=== PATIENT | male | born 1970 | race African-American/Black ===

== ENCOUNTER 2016-11-23 11:02 | Inpatient (IN) | payer OTHER ==
[2016-11-23 12:23] VITALS: BMI 25.2
--- NOTE | 2016-11-23 15:45 | HP ---
COWS - Scale Resting Pulse: 0= [place] 80 or Below Sweatin=Flushed/Facial Moisture Restless Observation: 3= Extraneous Movement Pupil Size: 1= Pupils >than Normal Bone or Joint Aches: 2= Severe Diffuse Aches Runny Nose/ Eye Tearin= Runny Nose/Eyes GI Upset > 30mins: 3= Vomiting/Diarrhea Tremor Observation: 2= Slight Tremor Visible Yawning Observation: 2= >3x During Session Anxiety or Irritability: 2=Irritable/Anxious Goose Flesh Skin: 0=Smooth Skin COWS Score: 19 Admission ROS BHS - HPI Chief Complaint: i need help help to stop using heroin Allergies/Adverse Reactions: Allergies Allergy/AdvReac Type Severity Reaction Status Date / Time No Known Allergies Allergy Verified 11/23/16 13:59 History of Present Illness: this 46 years old male with heroin dependence,withdrawal symptom,last 07/18 in [place] nicotine dependence insomnia longest sobriety 3 years Exam Limitations: No Limitations - Ebola screening Have you been sick,other than usual withdrawal symptoms: No - Review of Systems Constitutional: Chills, Diaphoresis, Loss of Appetite, Malaise, Night Sweats, Changes in sleep, Weakness, Unintentional Wgt. Loss EENT: reports: Tearing, Nose Congestion Respiratory: reports: No Symptoms reported Cardiac: reports: No Symptoms Reported GI: reports: Diarrhea, Nausea, Vomiting, Abdominal cramping : reports: No Symptoms Reported Musculoskeletal: reports: Back Pain, Joint Pain, Joint Stiffness Integumentary: reports: Dryness Neuro: reports: Headache, Tremors Endocrine: reports: No Symptoms Reported Hematology: reports: No Symptoms Reported Psychiatric: reports: No Sypmtoms Reported Patient History - Patient Medical History Hx Anemia: No Hx Asthma: No Hx Chronic Obstructive Pulmonary Disease (COPD): No Hx Cancer: No Hx Cardiac Disorders: No Hx Congestive Heart Failure: No Hx Hypertension: No Hx Hypercholesterolemia: No Hx Pacemaker: No HX Cerebrovascular Accident: No Hx Seizures: No Hx Dementia: No Hx Diabetes: No Hx Gastrointestinal Disorders: No Hx Liver Disease: No Hx Genitourinary Disorders: No Hx Sexually Transmitted Disorders: No Hx Renal Disease (ESRD): No Hx Thyroid Disease: No Hx Human Immunodeficiency Virus (HIV): No (last 2015 negative) Hx Hepatitis C: No Hx Depression: No Hx Suicide Attempt: No Hx Bipolar Disorder: No Hx Schizophrenia: No Other Medical History: no suicidal,no homicidal - Patient Surgical History Past Surgical History: Yes Hx Appendectomy: Yes (age 11 years) Other Surgical History: surgery for torsion of teses at age of 14 - PPD History Previous Implant?: Yes Documented Results: Negative w/o proof Implanted On Prior [facility] Admission?: No PPD to be Administered?: Yes - Smoking Cessation Smoking history: Current every day smoker Have you smoked in the past 12 months: Yes Aproximately how many cigarettes per day: 10 Hx Chewing Tobacco Use: No Initiated information on smoking cessation: Yes 'Breaking Loose' booklet given: 11/23/16 - Substance & Tx. History Hx Alcohol Use: No Hx Substance Use: Yes Substance Use Type: Heroin Hx Substance Use Treatment: Yes ([place] 06/17) - Substances Abused Heroin Route: Inhalation Frequency: Daily Amount used: 10 BAGS Age of first use: 18 Date of Last Use: 11/22/16 Family Disease History - Family Disease History Family History: Denies Admission Physical Exam [facility] - Vital Signs Vital Signs: Vital Signs - 24 hr 11/23/16 12:22 Temperature 97.8 F Pulse Rate 80 Respiratory 18 Rate Blood Pressure 131/75 - Physical General Appearance: Yes: Moderate Distress, Tremorous, Sweating, Anxious HEENTM: Yes: Hearing grossly Normal, Pharynx Normal, Nasal Congestion Respiratory: Yes: Lungs Clear Neck: Yes: Within Normal Limits, Supple, Trachea in good position Breast: Yes: Within Normal Limits Cardiology: Yes: Within Normal Limits, Regular Rhythm, Regular Rate, S1, S2 Abdominal: Yes: Within Normal Limits, Normal Bowel Sounds, Non Tender, Soft, Surgical Scar Genitourinary: Yes: Within Normal Limits Back: Yes: Normal Inspection, Muscle Spasm Musculoskeletal: Yes: full range of Motion, Back pain, Joint Stiffness, Muscle Pain Extremities: Yes: Normal Capillary Refill, Normal Inspection, Normal Range of Motion, Tremors Neurological: Yes: 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 loom control II-XII NML intact, Fully Oriented, Alert, Motor Strength 5/5 Integumentary: Yes: Dry Lymphatic: Yes: Within Normal Limits - Diagnostic (1) Opioid dependence with withdrawal Current Visit: Yes Status: Acute (2) Nicotine dependence Current Visit: Yes Status: Acute (3) Weight loss Current Visit: Yes Status: Acute (4) Insomnia Current Visit: Yes Status: Acute Cleared for Admission [facility] - Detox or Rehab [facility] Level of Care: Medically Managed Detox Regimen/Protocol: Methadone [facility] Breath Alcohol Content Breath Alcohol Content: 0 Urine Drug Screen - Results Drug Screen Negative: No Urine Drug Screen Results: OPI-Opiates, OXY-Oxycodone
[2016-11-23] MEDS ORDERED: hydrOXYzine PAMOATE 25 MG CAPSULE (FP) PO PRN (15:56)
[2016-11-23] MEDS ORDERED: IBUPROFEN 400 MG TABLET (FP) PO PRN (15:56)
[2016-11-23] MEDS ORDERED: guaiFENesin/D-METHORPHAN HB 10 ML UNIT-DOSE CUPS PO PRN (15:56)
[2016-11-23] MEDS ORDERED: MAG HYDROX/AL HYDROX/SIMETH 30 ML UNIT-DOSE CUP PO PRN (15:56)
[2016-11-23] MEDS ORDERED: MAGNESIUM HYDROX 2400MG/30ML ORAL SUSPENSION 30 ML CUP PO PRN (15:56)
[2016-11-23] MEDS ORDERED: ACETAMINOPHEN 325 MG TABLET (FP) PO PRN (15:56)
[2016-11-23] MEDS ORDERED: MENTHOL/PHENOL 1 EACH UD MM PRN (15:56)
[2016-11-23] MEDS ORDERED: MAGNESIUM CITRATE 300 ML BOTTLE PO PRN (15:56)
[2016-11-23] MEDS ORDERED: P-EPHED 60MG/TRIPROLIDI 2.5MG TABLET PO PRN (15:56)
[2016-11-23] MEDS ORDERED: NICOTINE POLACRILEX 2 MG GUM BC PRN (15:56)
[2016-11-23] MEDS ORDERED: LOPERAMIDE HCL 2 MG CAPSULE PO PRN (15:56)
[2016-11-23] MEDS ORDERED: METHADONE HCL 10 MG TABLET (FOR DETOX USE ONLY) PO ONE ×2 (16:45→23:00)
[2016-11-23] MEDS: diazePAM 5 MG TABLET PO PRN (17:45)
[2016-11-23 20:03] LABS: URINE APPEARANCE CLEAR; URINE BILIRUBIN NEGATIVE (NEGATIVE); URINE BLOOD NEGATIVE (NEGATIVE); URINE COLOR YELLOW; URINE GLUCOSE (UA) NEGATIVE (NEGATIVE); URINE KETONE NEGATIVE (NEGATIVE); URINE LEUK ESTERASE NEGATIVE (NEGATIVE); URINE NITRITE NEGATIVE (NEGATIVE); URINE PROTEIN NEGATIVE (NEGATIVE); URINE UROBILINOGEN NEGATIVE E.U./dl (0.2-1.0)
[2016-11-23] MEDS: cloNIDine HCL 0.1 MG TABLET PO SCH (23:02)
[2016-11-23] MEDS: THIAMINE HCL 100 MG TABLET (FP) PO SCH (23:02)
[2016-11-23] MEDS: CYCLOBENZAPRINE HCL 10 MG TABLET (FP) PO PRN (23:03)
[2016-11-23] MEDS: diphenhydrAMINE HCL 50 MG CAPSULE PO PRN (23:04)
[2016-11-24] MEDS ORDERED: TRIMETHOBENZAMIDE HCL 200MG/2ML INJ IM PRN ×2 (07:34→10:26)
[2016-11-24] MEDS ORDERED: ONDANSETRON *ODT* 4 MG TABLET SL PRN (09:47)
--- NOTE | 2016-11-24 09:55 | PN ---
BHS COWS - Scale Resting Pulse: 0= [place] 80 or Below Sweatin=Flushed/Facial Moisture Restless Observation: 1= Difficult to Sit Still Pupil Size: 1= Pupils >than Normal Bone or Joint Aches: 2= Severe Diffuse Aches Runny Nose/ Eye Tearin= Runny Nose/Eyes GI Upset > 30mins: 3= Vomiting/Diarrhea (repeated bout of vomiting) Tremor Observation of Outstretched Hands: 2= Slight Tremor Visible Yawning Observation: 1= 1-2x During Session Anxiety or Irritability: 2=Irritable/Anxious Goose Flesh Skin: 3=Piloerection COWS Score: 19 BHS Progress Note (SOAP) Subjective: Nausea,vomiting,sweating,anxiety,restless,interrupted sleep Objective: 11/24/16 09:54 Vital Signs - 8 hr 11/24/16 11/24/16 03:00 06:36 Temperature 98.2 F Pulse Rate 77 Respiratory 18 16 Rate Blood Pressure 117/83 Laboratory Tests 11/23/16 19:45 Urine Color Yellow Urine Appearance Clear Urine pH 5.0 Ur Specific [place] 1.018 Urine Protein Negative Urine Glucose (UA) Negative Urine Ketones Negative Urine Blood Negative Urine Nitrite Negative Urine Bilirubin Negative Urine Urobilinogen Negative Ur Leukocyte Esterase Negative Assessment: 11/24/16 09:54 Withdrawal sx. Plan: Continue detox Methadone 10mg IM
[2016-11-24] MEDS ORDERED: METHADONE HCL 10 MG TABLET (FOR DETOX USE ONLY) PO ONE (10:00)
[2016-11-24 10:39] LABS: MCH 29.3 pg (25.7-33.7); MCHC 33.5 g/dl (32.0-35.9); MEAN CELL VOLUME 87.4 fl (80-96); MEAN PLT VOLUME 8.3 fl (7.5-11.1); PLATELET COUNT 322 K/MM3 (134-434); RDW 13.7 % (11.9-15.9); WHITE BLOOD COUNT 4.9 K/mm3 (4.0-10.0)
[2016-11-24] MEDS ORDERED: METHADONE DETOX 10 MG/1 ML [20ML VIAL] IM ONE (11:00)
[2016-11-24 11:10] LABS: ALBUMIN 3.9 g/dl (3.4-5.0); ALK PHOS 83 U/L (45-117); ANION GAP 9 (8-16); BILIRUBIN,TOTAL 0.4 mg/dL (0.2-1.0); CALCIUM 9.6 mg/dL (8.5-10.1); CO2 25 mmol/L (21-32); GLUCOSE,RANDOM 94 mg/dL (74-106); SGOT/AST 45 U/L (15-37); SGPT/ALT 75 U/L (12-78); TOT PROT 7.7 g/dl (6.4-8.2)
[2016-11-24] MEDS: PRENATAL VITAMINS W/ FOLIC ACID TABLET (FP) PO SCH (11:10)
[2016-11-24] MEDS: cloNIDine HCL 0.1 MG TABLET PO SCH ×2 (11:10→22:50)
--- NOTE | 2016-11-24 13:03 | CONSULT ---
[facility] Psychiatric Consult - Data Date of interview: 11/24/16 Admission source: [facility] Identifying data: Readmission to [facility] for this 46 y/o AA male seeking detox treatment for heroin dependence.Patient is single,a father of one, domiciled,unemployed and supported on food stamps. Substance Abuse History: - Smoking Cessation. Smoking history: Current every day smoker. Have you smoked in the past 12 months: Yes. Aproximately how many cigarettes per day: 10. Hx Chewing Tobacco Use: No. Initiated information on smoking cessation: Yes. 'Breaking Loose' booklet given: 11/23/16. - Substance & Tx. History. Hx Alcohol Use: No. Hx Substance Use: Yes. Substance Use Type : Heroin. Hx Substance Use Treatment: Yes ([place] 06/17). - Substances Abused. Heroin. Route: Inhalation. Frequency: Daily. Amount used: 10 BAGS. Age of first use: 18. Date of Last Use: 11/22/16. Confirmed by patient . Medical History: Patient endorses good general health. Psychiatric History: Patient denies. Physical/Sexual Abuse/Trauma History: Patient denies. Additional Comment: Urine Drug Screen Results: OPI-Opiates, OXY-Oxycodone.Noted. Mental Status Exam - Mental Status Exam Alert and Oriented to: Time, Place, Person Cognitive Function: Good Patient Appearance: Unkempt, Disheveled Mood: Hostile, Withdrawn, Irritable Affect: Mood Congruent Patient Behavior: Fatigued, Uncooperative Speech Pattern: Clear Voice Loudness: Normal Thought Process: Goal Oriented Thought Disorder: Not Present Hallucinations: Denies Suicidal Ideation: Denies Homicidal Ideation: Denies Insight/Judgement: Poor Sleep: Fair Appetite: Good Muscle strength/Tone: Normal Gait/Station: Normal Psychiatric Findings - Problem List ([place] 1, 2,3) (1) Nicotine dependence Current Visit: Yes Status: Acute (2) Opioid dependence with withdrawal Current Visit: Yes Status: Acute (3) Insomnia Current Visit: Yes Status: Acute - Initial Treatment Plan Initial Treatment Plan: Psychoeducation.Detoxification in progress.Insomnia is addressed with benadryl at bedtime.Side effects/benefits discussed.Patient agrees with careplan.Observation.
[2016-11-24] MEDS: CYCLOBENZAPRINE HCL 10 MG TABLET (FP) PO PRN (17:39)
[2016-11-24] MEDS: diazePAM 5 MG TABLET PO PRN ×2 (17:39→22:51)
--- NOTE | 2016-11-24 18:31 | EKG ---
Test Reason : Blood Pressure : / mmHG Vent. Rate : 075 BPM Atrial Rate : 075 BPM P-R Int : 180 ms QRS Dur : 090 ms QT Int : 382 ms P-R-T Axes : 055 052 017 degrees QTc Int : 426 ms NORMAL SINUS RHYTHM NORMAL ECG NO PREVIOUS ECGS AVAILABLE Confirmed by SHERRI BECK MD ([id number]) on 11/24/2016 6:30:29 PM Referred By: Confirmed By:SHERRI BECK MD
[2016-11-24] MEDS: diphenhydrAMINE HCL 50 MG CAPSULE PO PRN (22:50)
[2016-11-24] MEDS: THIAMINE HCL 100 MG TABLET (FP) PO SCH (22:50)
[2016-11-25] MEDS ORDERED: METHADONE HCL 5 MG TABLET (FOR DETOX USE ONLY) PO ONE (10:00)
[2016-11-25] MEDS: PRENATAL VITAMINS W/ FOLIC ACID TABLET (FP) PO SCH (10:34)
[2016-11-25] MEDS: cloNIDine HCL 0.1 MG TABLET PO SCH ×2 (10:34→22:38)
[2016-11-25] MEDS: diazePAM 5 MG TABLET PO PRN ×2 (10:34→22:38)
--- NOTE | 2016-11-25 12:55 | PN ---
BHS COWS - Scale Resting Pulse: 2= [place] 101-120 Sweatin=Flushed/Facial Moisture Restless Observation: 1= Difficult to Sit Still Pupil Size: 0= Normal to Room Light Bone or Joint Aches: 2= Severe Diffuse Aches Runny Nose/ Eye Tearin= Runny Nose/Eyes GI Upset > 30mins: 2= Nausea/Diarrhea Tremor Observation of Outstretched Hands: 2= Slight Tremor Visible Yawning Observation: 1= 1-2x During Session Anxiety or Irritability: 2=Irritable/Anxious Goose Flesh Skin: 0=Smooth Skin COWS Score: 16 BHS Progress Note (SOAP) Subjective: Anxiety,tremors,sweating,interrupted sleep,restless Objective: 11/25/16 12:54 Vital Signs - 8 hr 11/25/16 11/25/16 06:34 09:44 Temperature 99.7 F H 99.4 F Pulse Rate 110 H 116 H Respiratory 18 18 Rate Blood Pressure 141/104 130/89 Laboratory Tests 11/23/16 11/24/16 11/24/16 19:45 06:20 06:20 WBC 4.9 RBC 4.25 Hgb 12.4 Hct 37.1 MCV 87.4 MCHC 33.5 RDW 13.7 Plt Count 322 MPV 8.3 Sodium 139 Potassium 4.3 Chloride 105 Carbon Dioxide 25 Anion Gap 9 BUN 15 Creatinine 1.0 Creat Clearance w eGFR > 60 Random Glucose 94 Calcium 9.6 Total Bilirubin 0.4 AST 45 H ALT 75 Alkaline Phosphatase 83 Total Protein 7.7 Albumin 3.9 Urine Color Yellow Urine Appearance Clear Urine pH 5.0 Ur Specific [place] 1.018 Urine Protein Negative Urine Glucose (UA) Negative Urine Ketones Negative Urine Blood Negative Urine Nitrite Negative Urine Bilirubin Negative Urine Urobilinogen Negative Ur Leukocyte Esterase Negative RPR Titer 11/24/16 06:20 WBC RBC Hgb Hct MCV MCHC RDW Plt Count MPV Sodium Potassium Chloride Carbon Dioxide Anion Gap BUN Creatinine Creat Clearance w eGFR Random Glucose Calcium Total Bilirubin AST ALT Alkaline Phosphatase Total Protein Albumin Urine Color Urine Appearance Urine pH Ur Specific [place] Urine Protein Urine Glucose (UA) Urine Ketones Urine Blood Urine Nitrite Urine Bilirubin Urine Urobilinogen Ur Leukocyte Esterase RPR Titer Nonreactive labs noted Assessment: 11/25/16 12:54 Withdrawal sx. Plan: Continue detox
[2016-11-25] MEDS: THIAMINE HCL 100 MG TABLET (FP) PO SCH (22:38)
[2016-11-25] MEDS: CYCLOBENZAPRINE HCL 10 MG TABLET (FP) PO PRN (22:38)
[2016-11-26] MEDS ORDERED: METHADONE HCL 10 MG TABLET (FOR DETOX USE ONLY) PO ONE (10:00)
[2016-11-26] MEDS ORDERED: METHADONE HCL 5 MG TABLET (FOR DETOX USE ONLY) PO ONE (10:00)
--- NOTE | 2016-11-26 10:00 | PN ---
BHS Progress Note (SOAP) Subjective: No more vomiting,still c/o sweating & interrupted sleep. Objective: 11/26/16 09:59 Vital Signs - 8 hr 11/26/16 11/26/16 03:30 06:24 Temperature 98.2 F Pulse Rate 95 H Respiratory 18 18 Rate Blood Pressure 109/79 Laboratory Last Values WBC 4.9 K/mm3 (4.0-10.0) 11/24/16 06:20 RBC 4.25 M/mm3 (4.00-5.60) 11/24/16 06:20 Hgb 12.4 GM/dL (11.7-16.9) 11/24/16 06:20 Hct 37.1 % (35.4-49) 11/24/16 06:20 MCV 87.4 fl (80-96) 11/24/16 06:20 MCHC 33.5 g/dl (32.0-35.9) 11/24/16 06:20 RDW 13.7 % (11.9-15.9) 11/24/16 06:20 Plt Count 322 K/MM3 (134-434) 11/24/16 06:20 MPV 8.3 fl (7.5-11.1) 11/24/16 06:20 Sodium 139 mmol/L (136-145) 11/24/16 06:20 Potassium 4.3 mmol/L (3.5-5.1) 11/24/16 06:20 Chloride 105 mmol/L (98-107) 11/24/16 06:20 Carbon Dioxide 25 mmol/L (21-32) 11/24/16 06:20 Anion Gap 9 (8-16) 11/24/16 06:20 BUN 15 mg/dL (7-18) 11/24/16 06:20 Creatinine 1.0 mg/dL (0.7-1.3) 11/24/16 06:20 Creat Clearance w eGFR > 60 (>60) 11/24/16 06:20 Random Glucose 94 mg/dL (74-106) 11/24/16 06:20 Calcium 9.6 mg/dL (8.5-10.1) 11/24/16 06:20 Total Bilirubin 0.4 mg/dL (0.2-1.0) 11/24/16 06:20 AST 45 U/L (15-37) H 11/24/16 06:20 ALT 75 U/L (12-78) 11/24/16 06:20 Alkaline Phosphatase 83 U/L (45-117) 11/24/16 06:20 Total Protein 7.7 g/dl (6.4-8.2) 11/24/16 06:20 Albumin 3.9 g/dl (3.4-5.0) 11/24/16 06:20 Urine Color Yellow 11/23/16 19:45 Urine Appearance Clear 11/23/16 19:45 Urine pH 5.0 (5.0-8.0) 11/23/16 19:45 Ur Specific [place] 1.018 (1.001-1.035) 11/23/16 19:45 Urine Protein Negative (NEGATIVE) 11/23/16 19:45 Urine Glucose (UA) Negative (NEGATIVE) 11/23/16 19:45 Urine Ketones Negative (NEGATIVE) 11/23/16 19:45 Urine Blood Negative (NEGATIVE) 11/23/16 19:45 Urine Nitrite Negative (NEGATIVE) 11/23/16 19:45 Urine Bilirubin Negative (NEGATIVE) 11/23/16 19:45 Urine Urobilinogen Negative E.U./dl (0.2-1.0) 11/23/16 19:45 Ur Leukocyte Esterase Negative (NEGATIVE) 11/23/16 19:45 RPR Titer Nonreactive (NONREACTIVE) 11/24/16 06:20 labs noted Assessment: 11/26/16 10:00 Withdrawal sx. Plan: Continue detox
[2016-11-26] MEDS: PRENATAL VITAMINS W/ FOLIC ACID TABLET (FP) PO SCH (10:34)
[2016-11-26] MEDS: cloNIDine HCL 0.1 MG TABLET PO SCH ×2 (10:34→22:45)
[2016-11-26] MEDS: THIAMINE HCL 100 MG TABLET (FP) PO SCH (22:45)
[2016-11-26] MEDS: diphenhydrAMINE HCL 50 MG CAPSULE PO PRN (22:45)
[2016-11-26] MEDS: CYCLOBENZAPRINE HCL 10 MG TABLET (FP) PO PRN (22:45)
[2016-11-27] MEDS: CYCLOBENZAPRINE HCL 10 MG TABLET (FP) PO PRN (05:24)
[2016-11-27] MEDS ORDERED: METHADONE HCL 5 MG TABLET (FOR DETOX USE ONLY) PO ONE (06:00)
[2016-11-27 06:15] VITALS: BP 96/72; PULSE 108; TEMP 97.8
--- NOTE | 2016-11-27 09:05 | DS ---
[facility] Detox Discharge Summary Admission Date: 11/23/16 Discharge Date: 11/27/16 - History Present History: Opioid Dependence Additional Comments: DETOX COMPLETED. Pertinent Past History: INSOMNIA - Physical Exam Results Vital Signs: Vital Signs Temperature 97.8 F 11/27/16 06:13 Pulse Rate 108 H 11/27/16 06:13 Respiratory Rate 18 11/27/16 06:13 Blood Pressure 96/72 11/27/16 06:13 O2 Sat by Pulse Oximetry (%) Pertinent Admission Physical Exam Findings: WITHDRAWAL SX Laboratory Last Values WBC 4.9 K/mm3 (4.0-10.0) 11/24/16 06:20 RBC 4.25 M/mm3 (4.00-5.60) 11/24/16 06:20 Hgb 12.4 GM/dL (11.7-16.9) 11/24/16 06:20 Hct 37.1 % (35.4-49) 11/24/16 06:20 MCV 87.4 fl (80-96) 11/24/16 06:20 MCHC 33.5 g/dl (32.0-35.9) 11/24/16 06:20 RDW 13.7 % (11.9-15.9) 11/24/16 06:20 Plt Count 322 K/MM3 (134-434) 11/24/16 06:20 MPV 8.3 fl (7.5-11.1) 11/24/16 06:20 Sodium 139 mmol/L (136-145) 11/24/16 06:20 Potassium 4.3 mmol/L (3.5-5.1) 11/24/16 06:20 Chloride 105 mmol/L (98-107) 11/24/16 06:20 Carbon Dioxide 25 mmol/L (21-32) 11/24/16 06:20 Anion Gap 9 (8-16) 11/24/16 06:20 BUN 15 mg/dL (7-18) 11/24/16 06:20 Creatinine 1.0 mg/dL (0.7-1.3) 11/24/16 06:20 Creat Clearance w eGFR > 60 (>60) 11/24/16 06:20 Random Glucose 94 mg/dL (74-106) 11/24/16 06:20 Calcium 9.6 mg/dL (8.5-10.1) 11/24/16 06:20 Total Bilirubin 0.4 mg/dL (0.2-1.0) 11/24/16 06:20 AST 45 U/L (15-37) H 11/24/16 06:20 ALT 75 U/L (12-78) 11/24/16 06:20 Alkaline Phosphatase 83 U/L (45-117) 11/24/16 06:20 Total Protein 7.7 g/dl (6.4-8.2) 11/24/16 06:20 Albumin 3.9 g/dl (3.4-5.0) 11/24/16 06:20 Urine Color Yellow 11/23/16 19:45 Urine Appearance Clear 11/23/16 19:45 Urine pH 5.0 (5.0-8.0) 11/23/16 19:45 Ur Specific [place] 1.018 (1.001-1.035) 11/23/16 19:45 Urine Protein Negative (NEGATIVE) 11/23/16 19:45 Urine Glucose (UA) Negative (NEGATIVE) 11/23/16 19:45 Urine Ketones Negative (NEGATIVE) 11/23/16 19:45 Urine Blood Negative (NEGATIVE) 11/23/16 19:45 Urine Nitrite Negative (NEGATIVE) 11/23/16 19:45 Urine Bilirubin Negative (NEGATIVE) 11/23/16 19:45 Urine Urobilinogen Negative E.U./dl (0.2-1.0) 11/23/16 19:45 Ur Leukocyte Esterase Negative (NEGATIVE) 11/23/16 19:45 RPR Titer Nonreactive (NONREACTIVE) 11/24/16 06:20 - Treatment Hospital Course: Detox Protocol Followed, Detoxed Safely, Responded well, Discharged Condition Good, Rehab Referral Accepted Patient has Accepted a Rehab Referral to: [facility]; SELF HELP MEETING GROUP: [facility] - Medication Discharge Medications: Ambulatory Orders NK [No Known Home Medication] 11/23/16 - AMA Did Patient Leave Against Medical Advice: No
[2016-11-27] MEDS ORDERED: METHADONE HCL 10 MG TABLET (FOR DETOX USE ONLY) PO ONE (10:00)
[2016-11-28] MEDS ORDERED: METHADONE HCL 5 MG TABLET (FOR DETOX USE ONLY) PO ONE (06:00)
== END 2016-11-27 06:36 | disposition home or self-care (01) | DRG 773 ==
LOC: YASAS 11:02 → Y3N 15:53
PROVIDERS: ADMIT Internal Medicine; ATTEND Internal Medicine
PROC: HZ2ZZZZ Detoxification Services for Substance Abuse Treatment (ICD-10-PCS; principal; 2016-11-27)
DX: F11.23 Opioid dependence with withdrawal (principal); F17.210 Nicotine dependence, cigarettes, uncomplicated; G47.00 Insomnia, unspecified; R63.4 Abnormal weight loss; Z68.25 Body mass index [BMI] 25.0-25.9, adult
CPT/HCPCS: 36415; 80053; 81003; 85027; 86593; 93005; 93010

== ENCOUNTER 2016-12-28 11:07 | Inpatient (IN) | payer OTHER ==
[2016-12-28 12:15] VITALS: BMI 26.1
--- NOTE | 2016-12-28 14:40 | HP ---
COWS - Scale Resting Pulse: 0= [place] 80 or Below Sweatin=Flushed/Facial Moisture Restless Observation: 1= Difficult to Sit Still Pupil Size: 0= Normal to Room Light Bone or Joint Aches: 2= Severe Diffuse Aches Runny Nose/ Eye Tearin= Constantly Teary/Runny GI Upset > 30mins: 2= Nausea/Diarrhea Tremor Observation: 2= Slight Tremor Visible Yawning Observation: 2= >3x During Session Anxiety or Irritability: 2=Irritable/Anxious Goose Flesh Skin: 3=Piloerection COWS Score: 20 Admission ROS S - HPI Chief Complaint: I need help. Allergies/Adverse Reactions: Allergies Allergy/AdvReac Type Severity Reaction Status Date / Time No Known Allergies Allergy Verified 12/28/16 14:26 History of Present Illness: Pt is a 46yr old male with a history of heroin dependence seeking detox for treatment. Exam Limitations: No Limitations - Ebola screening Have you traveled outside of the country in the last 21 days: No Have you had contact with anyone from an Ebola affected area: No Have you been sick,other than usual withdrawal symptoms: No Do you have a fever: No - Review of Systems Constitutional: Chills, Diaphoresis, Loss of Appetite, Night Sweats, Changes in sleep, Unintentional Wgt. Loss EENT: reports: Tearing, Nose Congestion Respiratory: reports: No Symptoms reported Cardiac: reports: No Symptoms Reported GI: reports: Diarrhea, Nausea, Poor Appetite, Poor Fluid Intake, Abdominal cramping : reports: No Symptoms Reported Musculoskeletal: reports: Back Pain, Joint Pain, Muscle Pain, Muscle Weakness Integumentary: reports: Flushing, Sweating Neuro: reports: Headache, Tingling, Tremors Endocrine: reports: Excessive Sweating, Flushing, Intolerance to Cold, Intolerance to Heat Hematology: reports: No Symptoms Reported Psychiatric: reports: Judgement Intact, Mood/Affect Appropiate, Orientated x3, Agitated, Anxious Other Systems: Reviewed and Negative Patient History - Patient Medical History Hx Anemia: No Hx Asthma: No Hx Chronic Obstructive Pulmonary Disease (COPD): No Hx Cancer: No Hx Cardiac Disorders: No Hx Congestive Heart Failure: No Hx Hypertension: No Hx Hypercholesterolemia: No Hx Pacemaker: No HX Cerebrovascular Accident: No Hx Seizures: No Hx Dementia: No Hx Diabetes: No Hx Gastrointestinal Disorders: No Hx Liver Disease: No Hx Genitourinary Disorders: No Hx Sexually Transmitted Disorders: No Hx Renal Disease (ESRD): No Hx Thyroid Disease: No Hx Human Immunodeficiency Virus (HIV): No (last 2016 negative) Hx Hepatitis C: No (negative) Hx Depression: No Hx Suicide Attempt: No Hx Bipolar Disorder: No Hx Schizophrenia: No - Patient Surgical History Past Surgical History: Yes Hx Appendectomy: Yes (age 11 years) Other Surgical History: surgery for torsion of teses at age of 14 - PPD History Previous Implant?: Yes Date: 11/25/16 PPD to be Administered?: No - Reproductive History Patient is a Female of Child Bearing Age (11 -55 yrs old): No - Smoking Cessation Smoking history: Current every day smoker Have you smoked in the past 12 months: Yes Aproximately how many cigarettes per day: 10 Hx Chewing Tobacco Use: No Initiated information on smoking cessation: Yes 'Breaking Loose' booklet given: 12/28/16 - Substance & Tx. History Hx Alcohol Use: No Hx Substance Use: Yes Substance Use Type: Heroin Hx Substance Use Treatment: Yes Family Disease History - Family Disease History Family Disease History: Diabetes: Father Admission Physical Exam S - Vital Signs Vital Signs: Vital Signs - 24 hr 12/28/16 12:14 Temperature 98.1 F Pulse Rate 80 Respiratory 18 Rate Blood Pressure 139/74 - Physical General Appearance: Yes: Appropriately Dressed, Moderate Distress, Tremorous, Irritable, Sweating, Anxious HEENTM: Yes: Normal Voice, Nasal Congestion, Rhinorrhea Respiratory: Yes: Lungs Clear, Normal Breath Sounds, No Respiratory Distress Neck: Yes: No masses,lesions,Nodules Breast: Yes: Within Normal Limits Cardiology: Yes: Regular Rhythm, Regular Rate, S1, S2 Abdominal: Yes: Normal Bowel Sounds Genitourinary: Yes: Within Normal Limits Back: Yes: Normal Inspection Musculoskeletal: Yes: full range of Motion, Back pain Extremities: Yes: Normal Capillary Refill, Normal Inspection, Non-Tender, Tremors Neurological: Yes: Fully Oriented, Alert, Normal Response Integumentary: Yes: Normal Color, Diaphoresis Lymphatic: Yes: Within Normal Limits - Diagnostic (1) Nicotine dependence Current Visit: Yes Status: Chronic Qualifiers: Nicotine product type: cigarettes Substance use status: uncomplicated Qualified Code(s): F17.210 - Nicotine dependence, cigarettes, uncomplicated (2) Opioid dependence with withdrawal Current Visit: Yes Status: Chronic (3) Weight loss Current Visit: Yes Status: Acute Cleared for Admission [facility] - Detox or Rehab [facility] Level of Care: Medically Managed Detox Regimen/Protocol: Methadone [facility] Breath Alcohol Content Breath Alcohol Content: 0 Urine Drug Screen - Results Drug Screen Negative: No Urine Drug Screen Results: THC-Marijuana, EUNICE-Cocaine, OPI-Opiates, OXY- Oxycodone
[2016-12-28] MEDS ORDERED: ACETAMINOPHEN 325 MG TABLET (FP) PO PRN (14:45)
[2016-12-28] MEDS ORDERED: MAGNESIUM CITRATE 300 ML BOTTLE PO PRN (14:45)
[2016-12-28] MEDS ORDERED: LOPERAMIDE HCL 2 MG CAPSULE PO PRN (14:45)
[2016-12-28] MEDS ORDERED: hydrOXYzine PAMOATE 50 MG CAPSULE (FP) PO PRN (14:45)
[2016-12-28] MEDS ORDERED: MENTHOL/PHENOL 1 EACH UD MM PRN (14:45)
[2016-12-28] MEDS ORDERED: guaiFENesin/D-METHORPHAN HB 10 ML UNIT-DOSE CUPS PO PRN (14:45)
[2016-12-28] MEDS ORDERED: MAG HYDROX/AL HYDROX/SIMETH 30 ML UNIT-DOSE CUP PO PRN (14:45)
[2016-12-28] MEDS ORDERED: IBUPROFEN 400 MG TABLET (FP) PO PRN (14:45)
[2016-12-28] MEDS ORDERED: P-EPHED 60MG/TRIPROLIDI 2.5MG TABLET PO PRN (14:45)
[2016-12-28] MEDS ORDERED: MAGNESIUM HYDROX 2400MG/30ML ORAL SUSPENSION 30 ML CUP PO PRN (14:45)
[2016-12-28] MEDS ORDERED: METHADONE HCL 10 MG TABLET (FOR DETOX USE ONLY) PO ONE ×3 (15:00→23:00)
--- NOTE | 2016-12-28 18:03 | PN ---
BHS Progress Note Note: received pharmacist called patient needs first dose methadone 10 mg now
[2016-12-28] MEDS: diazePAM 5 MG TABLET PO PRN (18:27)
[2016-12-28] MEDS: THIAMINE HCL 100 MG TABLET (FP) PO SCH (22:17)
[2016-12-28 23:12] LABS: URINE APPEARANCE CLEAR; URINE BILIRUBIN NEGATIVE (NEGATIVE); URINE BLOOD NEGATIVE (NEGATIVE); URINE COLOR YELLOW; URINE GLUCOSE (UA) NEGATIVE (NEGATIVE); URINE KETONE NEGATIVE (NEGATIVE); URINE LEUK ESTERASE NEGATIVE (NEGATIVE); URINE NITRITE NEGATIVE (NEGATIVE); URINE PROTEIN NEGATIVE (NEGATIVE); URINE UROBILINOGEN NEGATIVE E.U./dl (0.2-1.0)
[2016-12-29] MEDS ORDERED: METHADONE HCL 10 MG TABLET (FOR DETOX USE ONLY) PO ONE (10:00)
[2016-12-29] MEDS: PRENATAL VITAMINS W/ FOLIC ACID TABLET (FP) PO SCH (10:20)
[2016-12-29] MEDS: ASPIRIN 81 MG CHEWABLE TABLETS PO SCH (10:21)
[2016-12-29] MEDS: diazePAM 5 MG TABLET PO PRN (10:21)
[2016-12-29] MEDS: NICOTINE POLACRILEX 4 MG GUM BUC PRN ×2 (10:28→13:07)
[2016-12-29 11:11] LABS: ALBUMIN 3.9 g/dl (3.4-5.0); ANION GAP 9 (8-16); CALCIUM 9.3 mg/dL (8.5-10.1); CO2 25 mmol/L (21-32); COCKROFT - GAULT 96.95; GLUCOSE,RANDOM 132 mg/dL (74-106); MCH 29.6 pg (25.7-33.7); MCHC 33.8 g/dl (32.0-35.9); MEAN CELL VOLUME 87.7 fl (80-96); MEAN PLT VOLUME 8.5 fl (7.5-11.1); PLATELET COUNT 296 K/MM3 (134-434); RDW 13.2 % (11.9-15.9); SGOT/AST 28 U/L (15-37); SGPT/ALT 43 U/L (12-78); WHITE BLOOD COUNT 5.5 K/mm3 (4.0-10.0)
[2016-12-29 11:13] LABS: ALK PHOS 67 U/L (45-117); BILIRUBIN,TOTAL 0.4 mg/dL (0.2-1.0); TOT PROT 7.4 g/dl (6.4-8.2)
--- NOTE | 2016-12-29 11:33 | PN ---
S Progress Note (SOAP) Subjective: ALERT,IRRITABLE,ANXIOUS,INTERRUPTED SLEEP,PAIN IN THE BODY AND BACK,TREMOR Objective: 12/29/16 11:29 Vital Signs Temperature 97.7 F 12/29/16 11:12 Pulse Rate 68 12/29/16 11:12 Respiratory Rate 20 12/29/16 11:12 Blood Pressure 128/83 12/29/16 11:12 O2 Sat by Pulse Oximetry (%) EKG SINUS BRADYCARDIA WITH SINUS ARRHYTHMIA NO CHEST PAIN,NO SOB,NO DIZZINESS Laboratory Last Values WBC 5.5 K/mm3 (4.0-10.0) 12/29/16 06:05 RBC 4.14 M/mm3 (4.00-5.60) 12/29/16 06:05 Hgb 12.3 GM/dL (11.7-16.9) 12/29/16 06:05 Hct 36.3 % (35.4-49) 12/29/16 06:05 MCV 87.7 fl (80-96) 12/29/16 06:05 MCHC 33.8 g/dl (32.0-35.9) 12/29/16 06:05 RDW 13.2 % (11.9-15.9) 12/29/16 06:05 Plt Count 296 K/MM3 (134-434) 12/29/16 06:05 MPV 8.5 fl (7.5-11.1) 12/29/16 06:05 Sodium 142 mmol/L (136-145) 12/29/16 06:05 Potassium 3.8 mmol/L (3.5-5.1) 12/29/16 06:05 Chloride 108 mmol/L (98-107) H 12/29/16 06:05 Carbon Dioxide 25 mmol/L (21-32) 12/29/16 06:05 Anion Gap 9 (8-16) 12/29/16 06:05 BUN 9 mg/dL (7-18) D 12/29/16 06:05 Creatinine 1.0 mg/dL (0.7-1.3) 12/29/16 06:05 Creat Clearance w eGFR > 60 (>60) 12/29/16 06:05 Random Glucose 132 mg/dL (74-106) H D 12/29/16 06:05 Calcium 9.3 mg/dL (8.5-10.1) 12/29/16 06:05 Total Bilirubin 0.4 mg/dL (0.2-1.0) 12/29/16 06:05 AST 28 U/L (15-37) D 12/29/16 06:05 ALT 43 U/L (12-78) D 12/29/16 06:05 Alkaline Phosphatase 67 U/L (45-117) 12/29/16 06:05 Total Protein 7.4 g/dl (6.4-8.2) 12/29/16 06:05 Albumin 3.9 g/dl (3.4-5.0) 12/29/16 06:05 Urine Color Yellow 12/28/16 14:00 Urine Appearance Clear 12/28/16 14:00 Urine pH 5.0 (5.0-8.0) 12/28/16 14:00 Ur Specific [place] 1.024 (1.001-1.035) 12/28/16 14:00 Urine Protein Negative (NEGATIVE) 12/28/16 14:00 Urine Glucose (UA) Negative (NEGATIVE) 12/28/16 14:00 Urine Ketones Negative (NEGATIVE) 12/28/16 14:00 Urine Blood Negative (NEGATIVE) 12/28/16 14:00 Urine Nitrite Negative (NEGATIVE) 12/28/16 14:00 Urine Bilirubin Negative (NEGATIVE) 12/28/16 14:00 Urine Urobilinogen Negative E.U./dl (0.2-1.0) 12/28/16 14:00 Ur Leukocyte Esterase Negative (NEGATIVE) 12/28/16 14:00 LABS PENDING Assessment: 12/29/16 11:32 WITHDRAWAL SYMPTOM Plan: CONTINUE DETOX,INITIAL GLUCOSE 132,BGM MONITORING
[2016-12-29] MEDS: THIAMINE HCL 100 MG TABLET (FP) PO SCH (23:07)
[2016-12-29] MEDS: diphenhydrAMINE HCL 50 MG CAPSULE PO PRN (23:07)
[2016-12-30] MEDS ORDERED: METHADONE HCL 5 MG TABLET (FOR DETOX USE ONLY) PO ONE (10:00)
[2016-12-30] MEDS: ASPIRIN 81 MG CHEWABLE TABLETS PO SCH (10:57)
[2016-12-30] MEDS: PRENATAL VITAMINS W/ FOLIC ACID TABLET (FP) PO SCH (10:58)
[2016-12-30] MEDS: diazePAM 5 MG TABLET PO PRN ×2 (11:00→22:11)
--- NOTE | 2016-12-30 13:16 | PN ---
[facility] CIWA - CIWA Score Nausea/Vomitin Muscle Tremors: 3 Anxiety: 3 Agitation: 2 Paroxysmal Sweats: 1-Minimal Palms Moist Orientation: 0-Oriented Tacttile Disturbances: 1-Very Mild Itch/Numbness Auditory Disturbances: 1-Very Mild Visual Disturbances: 1-Very Mild Sensitivity Headache: 2-Mild CIWA-Ar Total Score: 17 [facility] COWS - Scale Resting Pulse: 0= [place] 80 or Below Sweatin= Chills/Flushing Restless Observation: 3= Extraneous Movement Pupil Size: 1= Pupils >than Normal Bone or Joint Aches: 2= Severe Diffuse Aches Runny Nose/ Eye Tearin= Runny Nose/Eyes GI Upset > 30mins: 3= Vomiting/Diarrhea Tremor Observation of Outstretched Hands: 2= Slight Tremor Visible Yawning Observation: 1= 1-2x During Session Anxiety or Irritability: 2=Irritable/Anxious Goose Flesh Skin: 0=Smooth Skin COWS Score: 17 [facility] Progress Note (SOAP) Subjective: ALERT,IRRITABLE,ANXIOUS,INTERRUPTED SLEEP,TREMOR,PAIN IN THE BODY AND BACK Objective: 12/30/16 13:14 Vital Signs Temperature 98.4 F 12/30/16 10:17 Pulse Rate 78 12/30/16 10:17 Respiratory Rate 16 12/30/16 10:17 Blood Pressure 133/92 12/30/16 10:17 O2 Sat by Pulse Oximetry (%) EKG NSR,NORMAL ECG Laboratory Last Values WBC 5.5 K/mm3 (4.0-10.0) 12/29/16 06:05 RBC 4.14 M/mm3 (4.00-5.60) 12/29/16 06:05 Hgb 12.3 GM/dL (11.7-16.9) 12/29/16 06:05 Hct 36.3 % (35.4-49) 12/29/16 06:05 MCV 87.7 fl (80-96) 12/29/16 06:05 MCHC 33.8 g/dl (32.0-35.9) 12/29/16 06:05 RDW 13.2 % (11.9-15.9) 12/29/16 06:05 Plt Count 296 K/MM3 (134-434) 12/29/16 06:05 MPV 8.5 fl (7.5-11.1) 12/29/16 06:05 Sodium 142 mmol/L (136-145) 12/29/16 06:05 Potassium 3.8 mmol/L (3.5-5.1) 12/29/16 06:05 Chloride 108 mmol/L (98-107) H 12/29/16 06:05 Carbon Dioxide 25 mmol/L (21-32) 12/29/16 06:05 Anion Gap 9 (8-16) 12/29/16 06:05 BUN 9 mg/dL (7-18) D 12/29/16 06:05 Creatinine 1.0 mg/dL (0.7-1.3) 12/29/16 06:05 Creat Clearance w eGFR > 60 (>60) 12/29/16 06:05 Random Glucose 132 mg/dL (74-106) H D 12/29/16 06:05 Calcium 9.3 mg/dL (8.5-10.1) 12/29/16 06:05 Total Bilirubin 0.4 mg/dL (0.2-1.0) 12/29/16 06:05 AST 28 U/L (15-37) D 12/29/16 06:05 ALT 43 U/L (12-78) D 12/29/16 06:05 Alkaline Phosphatase 67 U/L (45-117) 12/29/16 06:05 Total Protein 7.4 g/dl (6.4-8.2) 12/29/16 06:05 Albumin 3.9 g/dl (3.4-5.0) 12/29/16 06:05 Urine Color Yellow 12/28/16 14:00 Urine Appearance Clear 12/28/16 14:00 Urine pH 5.0 (5.0-8.0) 12/28/16 14:00 Ur Specific [place] 1.024 (1.001-1.035) 12/28/16 14:00 Urine Protein Negative (NEGATIVE) 12/28/16 14:00 Urine Glucose (UA) Negative (NEGATIVE) 12/28/16 14:00 Urine Ketones Negative (NEGATIVE) 12/28/16 14:00 Urine Blood Negative (NEGATIVE) 12/28/16 14:00 Urine Nitrite Negative (NEGATIVE) 12/28/16 14:00 Urine Bilirubin Negative (NEGATIVE) 12/28/16 14:00 Urine Urobilinogen Negative E.U./dl (0.2-1.0) 12/28/16 14:00 Ur Leukocyte Esterase Negative (NEGATIVE) 12/28/16 14:00 RPR Titer Nonreactive (NONREACTIVE) 12/29/16 06:05 Assessment: 12/30/16 13:15 WITHDRAWAL SYMPTOM Plan: CONTINUE DETOX,INITIAL GLUCOSE IS 132,BGM MONITORING
[2016-12-30] MEDS: THIAMINE HCL 100 MG TABLET (FP) PO SCH (22:11)
[2016-12-30] MEDS: cloNIDine HCL 0.1 MG TABLET PO SCH (22:11)
[2016-12-30] MEDS: CYCLOBENZAPRINE HCL 10 MG TABLET (FP) PO PRN (22:11)
[2016-12-30] MEDS: diphenhydrAMINE HCL 50 MG CAPSULE PO PRN (22:11)
--- NOTE | 2016-12-31 00:14 | EKG ---
Test Reason : Blood Pressure : / mmHG Vent. Rate : 059 BPM Atrial Rate : 059 BPM P-R Int : 168 ms QRS Dur : 092 ms QT Int : 398 ms P-R-T Axes : 060 040 019 degrees QTc Int : 394 ms SINUS BRADYCARDIA WITH SINUS ARRHYTHMIA OTHERWISE NORMAL ECG WHEN COMPARED WITH ECG OF 23-NOV-2016 16:40, NO SIGNIFICANT CHANGE WAS FOUND Confirmed by JUSTYNA THURSTON MD ([id number]) on 12/31/2016 12:13:34 AM Referred By: Confirmed By:JUSTYNA THURSTON MD
[2016-12-31] MEDS ORDERED: METHADONE HCL 5 MG TABLET (FOR DETOX USE ONLY) PO ONE (10:00)
--- NOTE | 2016-12-31 10:22 | PN ---
[facility] Progress Note (SOAP) Subjective: interrupted sleep but better Objective: 12/31/16 10:21 Vital Signs Temperature 97.9 F 12/31/16 06:00 Pulse Rate 76 12/31/16 06:00 Respiratory Rate 18 12/31/16 06:00 Blood Pressure 129/76 12/31/16 06:00 O2 Sat by Pulse Oximetry (%) Laboratory Tests 12/28/16 12/29/16 12/29/16 14:00 06:05 06:05 WBC 5.5 RBC 4.14 Hgb 12.3 Hct 36.3 MCV 87.7 MCHC 33.8 RDW 13.2 Plt Count 296 MPV 8.5 Sodium 142 Potassium 3.8 Chloride 108 H Carbon Dioxide 25 Anion Gap 9 BUN 9 D Creatinine 1.0 Creat Clearance w eGFR > 60 POC Glucometer Random Glucose 132 H D Calcium 9.3 Total Bilirubin 0.4 AST 28 D ALT 43 D Alkaline Phosphatase 67 Total Protein 7.4 Albumin 3.9 Urine Color Yellow Urine Appearance Clear Urine pH 5.0 Ur Specific [place] 1.024 Urine Protein Negative Urine Glucose (UA) Negative Urine Ketones Negative Urine Blood Negative Urine Nitrite Negative Urine Bilirubin Negative Urine Urobilinogen Negative Ur Leukocyte Esterase Negative RPR Titer 12/29/16 12/31/16 06:05 06:27 WBC RBC Hgb Hct MCV MCHC RDW Plt Count MPV Sodium Potassium Chloride Carbon Dioxide Anion Gap BUN Creatinine Creat Clearance w eGFR POC Glucometer 89 Random Glucose Calcium Total Bilirubin AST ALT Alkaline Phosphatase Total Protein Albumin Urine Color Urine Appearance Urine pH Ur Specific [place] Urine Protein Urine Glucose (UA) Urine Ketones Urine Blood Urine Nitrite Urine Bilirubin Urine Urobilinogen Ur Leukocyte Esterase RPR Titer Nonreactive pt aox3 in nad ambulating Assessment: 12/31/16 10:22 withdrawal sx's Plan: cont. detox increase fluids
[2016-12-31] MEDS: cloNIDine HCL 0.1 MG TABLET PO SCH ×2 (10:58→22:21)
[2016-12-31] MEDS: PRENATAL VITAMINS W/ FOLIC ACID TABLET (FP) PO SCH (10:59)
[2016-12-31] MEDS: ASPIRIN 81 MG CHEWABLE TABLETS PO SCH (10:59)
[2016-12-31] MEDS: diazePAM 5 MG TABLET PO PRN (10:59)
[2016-12-31] MEDS: NICOTINE POLACRILEX 4 MG GUM BUC PRN (11:01)
--- NOTE | 2016-12-31 13:54 | PN ---
[facility] Progress Note Note: Psychiatry Attending's note :
--- NOTE | 2016-12-31 15:17 | CONSULT ---
[facility] Psychiatric Consult - Data Date of interview: 12/31/16 Admission source: [facility] Identifying data: Another admission to [facility] for this 46 y/o AA male seeking detox treatment,on ,for heroin,cocaine and marijuana dependence.Patient is single,a father of one,domiciled,unemployed and supported on food stamps. Substance Abuse History: - Smoking Cessation. Smoking history: Current every day smoker. Have you smoked in the past 12 months: Yes. Aproximately how many cigarettes per day: 10. Hx Chewing Tobacco Use: No. Initiated information on smoking cessation: Yes. 'Breaking Loose' booklet given: 12/28/16. - Substance & Tx. History. Hx Alcohol Use: No. Hx Substance Use: Yes. Substance Use Type : Heroin. Hx Substance Use Treatment: Yes. Confirmed by patient. Medical History: Patient endorses good general health.Noted history of appendectomy (age 11) and sugery for torsion of testes (age 14). Psychiatric History: Patient denies. Physical/Sexual Abuse/Trauma History: Patient denies history of sexual abuse. Additional Comment: Urine Drug Screen Results: THC-Marijuana, EUNICE-Cocaine, OPI- Opiates, OXY-Oxycodone.Noted.Observation. Mental Status Exam - Mental Status Exam Alert and Oriented to: Time, Place, Person Cognitive Function: Good Patient Appearance: Well Groomed Mood: Anxious, Apprehensive (about eligibility for rehabilitation treatment at this time), Hopeful Affect: Appropriate, Normal Range Patient Behavior: Fatigued, Appropriate, Cooperative Speech Pattern: Clear, Appropriate Voice Loudness: Normal Thought Process: Goal Oriented Thought Disorder: Not Present Hallucinations: Denies Suicidal Ideation: Denies Homicidal Ideation: Denies Insight/Judgement: Fair Sleep: Poorly, Difficulty falling asleep Appetite: Good Muscle strength/Tone: Normal Gait/Station: Normal Psychiatric Findings - Problem List ([place] 1, 2,3) (1) Alcohol dependence with uncomplicated withdrawal Current Visit: Yes Status: Acute (2) Opioid dependence with withdrawal Current Visit: Yes Status: Acute (3) Cocaine dependence Current Visit: Yes Status: Acute (4) Marijuana dependence Current Visit: Yes Status: Acute (5) Nicotine dependence Current Visit: Yes Status: Acute Qualifiers: Nicotine product type: cigarettes Substance use status: uncomplicated Qualified Code(s): F17.210 - Nicotine dependence, cigarettes, uncomplicated (6) Insomnia Current Visit: Yes Status: Acute - Initial Treatment Plan Initial Treatment Plan: Psychoeducation.Detoxification.Sleep hygiene discussed with the patient.Ambien 10 mg po hs.Ordered.Patient made aware of potential for parasomnias.He agrees with this careplan.
[2016-12-31] MEDS ORDERED: ZOLPIDEM TARTRATE 10 MG TABLET (PARK CARE ONLY) PO PRN (22:00)
[2016-12-31] MEDS: THIAMINE HCL 100 MG TABLET (FP) PO SCH (22:23)
[2016-12-31] MEDS: CYCLOBENZAPRINE HCL 10 MG TABLET (FP) PO PRN (22:23)
[2016-12-31] MEDS: diphenhydrAMINE HCL 50 MG CAPSULE PO PRN (22:23)
[2017-01-01] MEDS ORDERED: METHADONE HCL 10 MG TABLET (FOR DETOX USE ONLY) PO ONE (10:00)
[2017-01-01] MEDS: cloNIDine HCL 0.1 MG TABLET PO SCH ×2 (10:52→22:18)
[2017-01-01] MEDS: PRENATAL VITAMINS W/ FOLIC ACID TABLET (FP) PO SCH (10:52)
[2017-01-01] MEDS: CYCLOBENZAPRINE HCL 10 MG TABLET (FP) PO PRN ×2 (10:52→22:18)
[2017-01-01] MEDS: ASPIRIN 81 MG CHEWABLE TABLETS PO SCH (10:52)
--- NOTE | 2017-01-01 11:25 | PN ---
[facility] Progress Note (SOAP) Subjective: agitation sweats interrupted sleep Objective: 01/01/17 11:24 Vital Signs Temperature 97.2 F L 01/01/17 09:47 Pulse Rate 88 01/01/17 09:47 Respiratory Rate 18 01/01/17 09:47 Blood Pressure 135/83 01/01/17 09:47 O2 Sat by Pulse Oximetry (%) awake/alert ambulating no acute distress Assessment: 01/01/17 11:24 withdrawal sx Plan: continue detox increase fluids que ordered d/c in am
[2017-01-01] MEDS ORDERED: ZOLPIDEM TARTRATE 10 MG TABLET (PARK CARE ONLY) PO PRN (22:00)
[2017-01-01] MEDS: THIAMINE HCL 100 MG TABLET (FP) PO SCH (22:18)
[2017-01-02] MEDS ORDERED: METHADONE HCL 5 MG TABLET (FOR DETOX USE ONLY) PO ONE (06:00)
[2017-01-02 06:35] VITALS: BP 152/95; PULSE 79; TEMP 97.7
--- NOTE | 2017-01-02 09:48 | DS ---
[facility] Detox Discharge Summary Admission Date: 12/28/16 Discharge Date: 01/02/17 - History Present History: Alcohol Dependence, Opioid Dependence - Physical Exam Results Vital Signs: Vital Signs Temperature 97.7 F 01/02/17 06:35 Pulse Rate 79 01/02/17 06:35 Respiratory Rate 18 01/02/17 06:35 Blood Pressure 152/95 01/02/17 06:35 O2 Sat by Pulse Oximetry (%) - Treatment Hospital Course: Detox Protocol Followed, Detoxed Safely, Responded well, Discharged Condition Good - Medication Discharge Medications: Ambulatory Orders NK [No Known Home Medication] 11/23/16 - Diagnosis (1) Alcohol dependence with uncomplicated withdrawal Status: Chronic (2) Cocaine dependence Status: Chronic Qualifiers: Substance use status: uncomplicated Qualified Code(s): F14.20 - Cocaine dependence, uncomplicated (3) Marijuana dependence Status: Chronic (4) Nicotine dependence Status: Chronic Qualifiers: Nicotine product type: cigarettes Substance use status: uncomplicated Qualified Code(s): F17.210 - Nicotine dependence, cigarettes, uncomplicated (5) Opioid dependence with withdrawal Status: Chronic - AMA Did Patient Leave Against Medical Advice: No
== END 2017-01-02 06:55 | disposition home or self-care (01) | DRG 773 ==
LOC: YASAS 11:07 → Y6N 14:58
PROVIDERS: ADMIT Internal Medicine; ATTEND Internal Medicine Addiction Medicine
PROC: HZ2ZZZZ Detoxification Services for Substance Abuse Treatment (ICD-10-PCS; principal; 2016-12-28)
DX: F11.23 Opioid dependence with withdrawal (principal); F10.230 Alcohol dependence with withdrawal, uncomplicated; F14.20 Cocaine dependence, uncomplicated; F12.20 Cannabis dependence, uncomplicated; F17.210 Nicotine dependence, cigarettes, uncomplicated; G47.00 Insomnia, unspecified; R00.1 Bradycardia, unspecified; I49.9 Cardiac arrhythmia, unspecified; Z87.898 Personal history of other specified conditions
CPT/HCPCS: 36415; 80053; 81003; 85027; 86593; 93005; 93010

== ENCOUNTER 2017-03-17 12:11 | Inpatient (IN) | payer OTHER ==
[2017-03-17 13:37] VITALS: BMI 25.9
--- NOTE | 2017-03-17 14:05 | HP ---
COWS - Scale Resting Pulse: 2= [place] 101-120 Sweatin=Flushed/Facial Moisture Restless Observation: 3= Extraneous Movement Pupil Size: 2= Moderately Dilated Bone or Joint Aches: 2= Severe Diffuse Aches Runny Nose/ Eye Tearin= Runny Nose/Eyes GI Upset > 30mins: 2= Nausea/Diarrhea Tremor Observation: 2= Slight Tremor Visible Yawning Observation: 2= >3x During Session Anxiety or Irritability: 2=Irritable/Anxious Goose Flesh Skin: 0=Smooth Skin COWS Score: 21 Admission ROS [facility] - HPI Chief Complaint: i need help to stop using heroin Allergies/Adverse Reactions: Allergies Allergy/AdvReac Type Severity Reaction Status Date / Time No Known Allergies Allergy Verified 03/17/17 14:05 History of Present Illness: this 46 years old male with heroin dependence,seeking help to stop using last detox [facility] 12/28/16 to 01/02/17 nicotine dependence insomnia depression longest period of sobriety 3 and half years Exam Limitations: No Limitations - Ebola screening Have you traveled outside of the country in the last 21 days: No Have you had contact with anyone from an Ebola affected area: No Have you been sick,other than usual withdrawal symptoms: No Do you have a fever: No - Review of Systems Constitutional: Chills, Diaphoresis, Loss of Appetite, Malaise, Night Sweats, Changes in sleep, Weakness EENT: reports: Tearing, Nose Congestion Respiratory: reports: No Symptoms reported Cardiac: reports: No Symptoms Reported GI: reports: Nausea, Poor Appetite, Vomiting, Abdominal cramping : reports: No Symptoms Reported Musculoskeletal: reports: Back Pain, Joint Pain, Muscle Pain, Joint Stiffness Integumentary: reports: Dryness Neuro: reports: Headache, Tremors Endocrine: reports: No Symptoms Reported Hematology: reports: No Symptoms Reported Psychiatric: reports: Depressed (insomnia) Patient History - Patient Medical History Hx Anemia: No Hx Asthma: No Hx Chronic Obstructive Pulmonary Disease (COPD): No Hx Cancer: No Hx Cardiac Disorders: No Hx Congestive Heart Failure: No Hx Hypertension: No Hx Hypercholesterolemia: No Hx Pacemaker: No HX Cerebrovascular Accident: No Hx Seizures: No Hx Dementia: No Hx Diabetes: No Hx Gastrointestinal Disorders: No Hx Liver Disease: No Hx Genitourinary Disorders: No Hx Sexually Transmitted Disorders: No Hx Renal Disease (ESRD): No Hx Thyroid Disease: No Hx Human Immunodeficiency Virus (HIV): No (last 2016 negative) Hx Hepatitis C: No (negative) Hx Depression: Yes (insomnia) Hx Suicide Attempt: No Hx Bipolar Disorder: No Hx Schizophrenia: No Other Medical History: no suicidal,no homicidal - Patient Surgical History Past Surgical History: Yes Hx Appendectomy: Yes (age 11 years) Other Surgical History: surgery for torsion of teses at age of 14 left - PPD History Previous Implant?: Yes Date: 11/25/16 Results: 0 mm PPD to be Administered?: No - Smoking Cessation Smoking history: Current every day smoker Have you smoked in the past 12 months: Yes Aproximately how many cigarettes per day: 10 Hx Chewing Tobacco Use: No Initiated information on smoking cessation: Yes 'Breaking Loose' booklet given: 03/17/17 - Substances Abused Heroin Route: Inhalation Frequency: Daily Amount used: 11 bags Age of first use: 24 Date of Last Use: 03/16/17 Family Disease History - Family Disease History Family Disease History: Diabetes: Father Admission Physical Exam S - Vital Signs Vital Signs: Vital Signs - 24 hr 03/17/17 13:36 Temperature 96.2 F L Pulse Rate 109 H Respiratory 20 Rate Blood Pressure 116/76 - Physical General Appearance: Yes: Moderate Distress, Tremorous, Irritable, Sweating, Anxious HEENTM: Yes: Hearing grossly Normal, Normal ENT Inspection, EMA, Pharynx Normal Respiratory: Yes: Lungs Clear, Normal Breath Sounds, No Respiratory Distress Neck: Yes: Within Normal Limits, Supple, Trachea in good position Breast: Yes: Within Normal Limits Cardiology: Yes: Tachycardia Abdominal: Yes: Within Normal Limits, Normal Bowel Sounds, Non Tender, Flat, Soft Genitourinary: Yes: Within Normal Limits Back: Yes: Normal Inspection, Muscle Spasm Musculoskeletal: Yes: full range of Motion, Back pain, Joint Stiffness, Muscle Pain Extremities: Yes: Within Normal Limits, Tremors Neurological: Yes: gyro mechanic II-XII NML intact, Alert, Motor Strength 5/5 Integumentary: Yes: Dry Lymphatic: Yes: Within Normal Limits - Diagnostic (1) Insomnia Current Visit: No Status: Acute (2) Nicotine dependence Current Visit: No Status: Chronic Qualifiers: Nicotine product type: cigarettes Substance use status: uncomplicated Qualified Code(s): F17.210 - Nicotine dependence, cigarettes, uncomplicated (3) Opioid dependence with withdrawal Current Visit: No Status: Chronic (4) Depression Current Visit: Yes Status: Acute Cleared for Admission [facility] - Detox or Rehab [facility] Level of Care: Medically Managed Detox Regimen/Protocol: Methadone [facility] Breath Alcohol Content Breath Alcohol Content: 0 Urine Drug Screen - Results Drug Screen Negative: No Urine Drug Screen Results: THC-Marijuana, OPI-Opiates
[2017-03-17] MEDS ORDERED: hydrOXYzine PAMOATE 50 MG CAPSULE (FP) PO PRN (14:26)
[2017-03-17] MEDS ORDERED: METHADONE HCL 10 MG TABLET (FOR DETOX USE ONLY) PO ONE ×2 (14:26→23:00)
[2017-03-17] MEDS ORDERED: IBUPROFEN 400 MG TABLET (FP) PO PRN (14:26)
[2017-03-17] MEDS ORDERED: MENTHOL/PHENOL 1 EACH UD MM PRN (14:26)
[2017-03-17] MEDS ORDERED: LOPERAMIDE HCL 2 MG CAPSULE PO PRN (14:26)
[2017-03-17] MEDS ORDERED: MAGNESIUM CITRATE 300 ML BOTTLE PO PRN (14:26)
[2017-03-17] MEDS ORDERED: P-EPHED 60MG/TRIPROLIDI 2.5MG TABLET PO PRN (14:26)
[2017-03-17] MEDS ORDERED: guaiFENesin/D-METHORPHAN HB 10 ML UNIT-DOSE CUPS PO PRN (14:26)
[2017-03-17] MEDS ORDERED: ACETAMINOPHEN 325 MG TABLET (FP) PO PRN (14:26)
[2017-03-17] MEDS ORDERED: MAG HYDROX/AL HYDROX/SIMETH 30 ML UNIT-DOSE CUP PO PRN (14:26)
[2017-03-17] MEDS ORDERED: MAGNESIUM HYDROX 2400MG/30ML ORAL SUSPENSION 30 ML CUP PO PRN (14:26)
[2017-03-17] MEDS: diazePAM 5 MG TABLET PO PRN ×2 (15:16→22:35)
[2017-03-17 21:46] LABS: URINE APPEARANCE CLEAR; URINE BILIRUBIN NEGATIVE (NEGATIVE); URINE BLOOD NEGATIVE (NEGATIVE); URINE COLOR YELLOW; URINE GLUCOSE (UA) NEGATIVE (NEGATIVE); URINE KETONE NEGATIVE (NEGATIVE); URINE LEUK ESTERASE NEGATIVE (NEGATIVE); URINE NITRITE NEGATIVE (NEGATIVE); URINE PROTEIN NEGATIVE (NEGATIVE); URINE UROBILINOGEN NEGATIVE mg/dL (0.2-1.0)
[2017-03-17] MEDS: diphenhydrAMINE HCL 50 MG CAPSULE PO PRN (22:35)
[2017-03-17] MEDS: THIAMINE HCL 100 MG TABLET (FP) PO SCH (22:35)
--- NOTE | 2017-03-18 08:28 | PN ---
[facility] COWS - Scale Resting Pulse: 0= [place] 80 or Below Sweatin= Chills/Flushing Restless Observation: 3= Extraneous Movement Pupil Size: 1= Pupils >than Normal Bone or Joint Aches: 2= Severe Diffuse Aches Runny Nose/ Eye Tearin= Runny Nose/Eyes GI Upset > 30mins: 2= Nausea/Diarrhea Tremor Observation of Outstretched Hands: 2= Slight Tremor Visible Yawning Observation: 1= 1-2x During Session Anxiety or Irritability: 2=Irritable/Anxious Goose Flesh Skin: 0=Smooth Skin COWS Score: 16 S Progress Note (SOAP) Subjective: ALERT,IRRITABLE,ANXIOUS,INTERRUPTED SLEEP,PAIN IN THE BODY AND BACK Objective: 03/18/17 08:26 Vital Signs Temperature 96.3 F L 03/18/17 06:01 Pulse Rate 60 03/18/17 06:01 Respiratory Rate 16 03/18/17 06:01 Blood Pressure 148/75 03/18/17 06:01 O2 Sat by Pulse Oximetry (%) EKG NSR,NORMAL ECG Laboratory Last Values Urine Color Yellow 03/17/17 14:00 Urine Appearance Clear 03/17/17 14:00 Urine pH 5.0 (5.0-8.0) 03/17/17 14:00 Urine Protein Negative (NEGATIVE) 03/17/17 14:00 Urine Glucose (UA) Negative (NEGATIVE) 03/17/17 14:00 Urine Ketones Negative (NEGATIVE) 03/17/17 14:00 Urine Blood Negative (NEGATIVE) 03/17/17 14:00 Urine Nitrite Negative (NEGATIVE) 03/17/17 14:00 Urine Bilirubin Negative (NEGATIVE) 03/17/17 14:00 Urine Urobilinogen Negative mg/dL (0.2-1.0) 03/17/17 14:00 Ur Leukocyte Esterase Negative (NEGATIVE) 03/17/17 14:00 LABS PENDING Assessment: 03/18/17 08:28 WITHDRAWAL SYMPTOM Plan: CONTINUE DETOX
--- NOTE | 2017-03-18 08:57 | CONSULT ---
[facility] Psychiatric Consult - Data Date of interview: 03/18/17 Admission source: [facility] Identifying data: This is 46 years old male with no psychiatric hoaspitalization histoiry, intoxicated with: Alcohol, Cannabis,. Nicotine and Opioids Substance Abuse History: - Results. Drug Screen Negative: No. Urine Drug Screen Results: THC-Marijuana, OPI-Opiates. - Smoking Cessation. Smoking history: Current every day smoker. Have you smoked in the past 12 months: Yes. Aproximately how many cigarettes per day: 10. Hx Chewing Tobacco Use: No. Initiated information on smoking cessation: Yes. 'Breaking Loose' booklet given : 03/17/17. - Substances Abused. Heroin. Route: Inhalation. Frequency: Daily. Amount used: 11 bags. Age of first use: 24. Date of Last Use: 03/16/17 Medical History: Weight loss history Psychiatric History: Reports history of depression reports no meication taking prior to admission Physical/Sexual Abuse/Trauma History: Denies Additional Comment: Observation. Drug Screen Negative: No. Urine Drug Screen Results: THC-Marijuana, OPI-Opiates Mental Status Exam - Mental Status Exam Alert and Oriented to: Person Cognitive Function: Fair Patient Appearance: Unkempt Mood: Sad Affect: Mood Congruent Patient Behavior: Cooperative Speech Pattern: Appropriate Voice Loudness: Mildly Soft/Quiet Thought Process: Circumstantial Thought Disorder: Being Controlled Hallucinations: Denies Suicidal Ideation: Denies Homicidal Ideation: Denies Insight/Judgement: Fair Sleep: Difficulty falling asleep Appetite: Weight gain Muscle strength/Tone: Mild Hypotonicity Gait/Station: Shuffling Additional Comments: - Results. Drug Screen Negative: No. Urine Drug Screen Results: THC-Marijuana, OPI-Opiates. Drug Screen Negative: No. Urine Drug Screen Results: THC-Marijuana, OPI-Opiates. Observation Psychiatric Findings - Problem List ([place] 1, 2,3) (1) Alcohol dependence with uncomplicated withdrawal Current Visit: No Status: Chronic (2) Cocaine dependence Current Visit: No Status: Chronic Qualifiers: Substance use status: uncomplicated Qualified Code(s): F14.20 - Cocaine dependence, uncomplicated (3) Marijuana dependence Current Visit: No Status: Chronic (4) Nicotine dependence Current Visit: No Status: Chronic Qualifiers: Nicotine product type: cigarettes Substance use status: uncomplicated Qualified Code(s): F17.210 - Nicotine dependence, cigarettes, uncomplicated (5) Opioid dependence with withdrawal Current Visit: No Status: Chronic (6) Drug-induced mood disorder Current Visit: Yes Status: Acute - Initial Treatment Plan Initial Treatment Plan: Drug Screen Negative: No. Urine Drug Screen Results: THC-Marijuana, OPI-Opiates. Observation
[2017-03-18] MEDS ORDERED: METHADONE HCL 10 MG TABLET (FOR DETOX USE ONLY) PO ONE (10:00)
[2017-03-18] MEDS ORDERED: PRENATAL VITAMINS W/ FOLIC ACID TABLET (FP) PO SCH (10:00)
[2017-03-18 10:06] LABS: MCH 29.2 pg (25.7-33.7); MCHC 33.6 g/dl (32.0-35.9); MEAN PLT VOLUME 8.1 fl (7.5-11.1); PLATELET COUNT 315 K/MM3 (134-434); RDW 13.2 % (11.9-15.9); WHITE BLOOD COUNT 4.5 K/mm3 (4.0-10.0)
[2017-03-18 10:19] LABS: ALBUMIN 3.5 g/dl (3.4-5.0); ANION GAP 5 (8-16); CALCIUM 9.2 mg/dL (8.5-10.1); CO2 27 mmol/L (21-32); CREATININE 0.9 mg/dL (0.7-1.3); GLUCOSE,RANDOM 108 mg/dL (74-106); SGOT/AST 31 U/L (15-37); SGPT/ALT 53 U/L (12-78)
[2017-03-18 10:20] LABS: ALK PHOS 89 U/L (45-117); BILIRUBIN,TOTAL 0.4 mg/dL (0.2-1.0); TOT PROT 7.1 g/dl (6.4-8.2)
--- NOTE | 2017-03-18 12:47 | EKG ---
Test Reason : Blood Pressure : / mmHG Vent. Rate : 072 BPM Atrial Rate : 072 BPM P-R Int : 166 ms QRS Dur : 088 ms QT Int : 374 ms P-R-T Axes : 066 026 -03 degrees QTc Int : 409 ms NORMAL SINUS RHYTHM NORMAL ECG WHEN COMPARED WITH ECG OF 28-DEC-2016 16:29, NO SIGNIFICANT CHANGE WAS FOUND Confirmed by FRANCISCO MIMS MD ([id number]) on 03/18/2017 12:47:03 PM Referred By: Confirmed By:FRANCISCO MIMS MD
[2017-03-18] MEDS: THIAMINE HCL 100 MG TABLET (FP) PO SCH (22:05)
[2017-03-18] MEDS: diphenhydrAMINE HCL 50 MG CAPSULE PO PRN (22:05)
--- NOTE | 2017-03-19 08:25 | PN ---
[facility] COWS - Scale Resting Pulse: 0= [place] 80 or Below Sweatin= Chills/Flushing Restless Observation: 3= Extraneous Movement Pupil Size: 1= Pupils >than Normal Bone or Joint Aches: 2= Severe Diffuse Aches Runny Nose/ Eye Tearin= Runny Nose/Eyes GI Upset > 30mins: 2= Nausea/Diarrhea Tremor Observation of Outstretched Hands: 2= Slight Tremor Visible Yawning Observation: 1= 1-2x During Session Anxiety or Irritability: 2=Irritable/Anxious Goose Flesh Skin: 0=Smooth Skin COWS Score: 16 S Progress Note (SOAP) Subjective: ALERT,IRRITABLE,ANXIOUS,INTERRUPTED SLEEP,TREMOR,PAIN IN THE BODY AND BACK Objective: 03/19/17 08:23 Vital Signs Temperature 97.3 F L 03/19/17 06:13 Pulse Rate 61 03/19/17 06:13 Respiratory Rate 16 03/19/17 06:13 Blood Pressure 114/69 03/19/17 06:13 O2 Sat by Pulse Oximetry (%) Laboratory Last Values WBC 4.5 K/mm3 (4.0-10.0) 03/18/17 07:15 RBC 4.68 M/mm3 (4.00-5.60) 03/18/17 07:15 Hgb 13.7 GM/dL (11.7-16.9) D 03/18/17 07:15 Hct 40.7 % (35.4-49) 03/18/17 07:15 MCV 87.0 fl (80-96) 03/18/17 07:15 MCH 29.2 pg (25.7-33.7) 03/18/17 07:15 MCHC 33.6 g/dl (32.0-35.9) 03/18/17 07:15 RDW 13.2 % (11.9-15.9) 03/18/17 07:15 Plt Count 315 K/MM3 (134-434) 03/18/17 07:15 MPV 8.1 fl (7.5-11.1) 03/18/17 07:15 Sodium 138 mmol/L (136-145) 03/18/17 07:15 Potassium 4.6 mmol/L (3.5-5.1) D 03/18/17 07:15 Chloride 106 mmol/L (98-107) 03/18/17 07:15 Carbon Dioxide 27 mmol/L (21-32) 03/18/17 07:15 Anion Gap 5 (8-16) L 03/18/17 07:15 BUN 17 mg/dL (7-18) D 03/18/17 07:15 Creatinine 0.9 mg/dL (0.7-1.3) 03/18/17 07:15 Creat Clearance w eGFR > 60 (>60) 03/18/17 07:15 Random Glucose 108 mg/dL (74-106) H 03/18/17 07:15 Calcium 9.2 mg/dL (8.5-10.1) 03/18/17 07:15 Total Bilirubin 0.4 mg/dL (0.2-1.0) 03/18/17 07:15 AST 31 U/L (15-37) 03/18/17 07:15 ALT 53 U/L (12-78) D 03/18/17 07:15 Alkaline Phosphatase 89 U/L (45-117) D 03/18/17 07:15 Total Protein 7.1 g/dl (6.4-8.2) 03/18/17 07:15 Albumin 3.5 g/dl (3.4-5.0) 03/18/17 07:15 Urine Color Yellow 03/17/17 14:00 Urine Appearance Clear 03/17/17 14:00 Urine pH 5.0 (5.0-8.0) 03/17/17 14:00 Ur Specific [place] 1.020 (1.005-1.025) 03/17/17 14:00 Urine Protein Negative (NEGATIVE) 03/17/17 14:00 Urine Glucose (UA) Negative (NEGATIVE) 03/17/17 14:00 Urine Ketones Negative (NEGATIVE) 03/17/17 14:00 Urine Blood Negative (NEGATIVE) 03/17/17 14:00 Urine Nitrite Negative (NEGATIVE) 03/17/17 14:00 Urine Bilirubin Negative (NEGATIVE) 03/17/17 14:00 Urine Urobilinogen Negative mg/dL (0.2-1.0) 03/17/17 14:00 Ur Leukocyte Esterase Negative (NEGATIVE) 03/17/17 14:00 RPR Titer Nonreactive (NONREACTIVE) 03/18/17 07:15 Assessment: 07/18/17 08:24 WITHDRAWAL SYMPTOM Plan: CONTINUE DETOX
--- NOTE | 2017-03-19 08:44 | PN ---
[facility] Progress Note Note: PATIENT COLD NOT COMPLETE DETOX DUE TO THE OF FAMILY,SEEN BY COUNSELOR, SIGNED RELEASE DMITRY
--- NOTE | 2017-03-19 08:46 | DS ---
[facility] Detox Discharge Summary Admission Date: 03/17/17 Discharge Date: 03/19/17 - History Present History: Opioid Dependence Additional Comments: PATIENT LEFT AMA COULD NOT COMPLETE TREATMENT DUE TO THE OF FAMILY Pertinent Past History: INSOMNIA DEPRESSION NICOTINE DEPENDENCE INFECTED DENTAL CARRIES - Physical Exam Results Vital Signs: Vital Signs Temperature 97.3 F L 03/19/17 06:13 Pulse Rate 61 03/19/17 06:13 Respiratory Rate 16 03/19/17 06:13 Blood Pressure 114/69 03/19/17 06:13 O2 Sat by Pulse Oximetry (%) Pertinent Admission Physical Exam Findings: WITHDRAWAL SYMPTOM - Medication Discharge Medications: Ambulatory Orders Amoxicillin - [Amoxicillin 500mg Capsule -] 500 mg PO TID 03/17/17 - Diagnosis (1) Insomnia Current Visit: No Status: Acute (2) Nicotine dependence Current Visit: No Status: Chronic Qualifiers: Nicotine product type: cigarettes Substance use status: uncomplicated Qualified Code(s): F17.210 - Nicotine dependence, cigarettes, uncomplicated (3) Opioid dependence with withdrawal Current Visit: No Status: Chronic (4) Depression Current Visit: Yes Status: Acute (5) Infected dental caries Current Visit: Yes Status: Acute - AMA Did Patient Leave Against Medical Advice: Yes
[2017-03-19] MEDS ORDERED: METHADONE HCL 5 MG TABLET (FOR DETOX USE ONLY) PO ONE (10:00)
[2017-03-19 10:55] VITALS: BP 112/82; PULSE 81; TEMP 98.8
[2017-03-20] MEDS ORDERED: METHADONE HCL 5 MG TABLET (FOR DETOX USE ONLY) PO ONE (10:00)
[2017-03-21] MEDS ORDERED: METHADONE HCL 10 MG TABLET (FOR DETOX USE ONLY) PO ONE (10:00)
[2017-03-22] MEDS ORDERED: METHADONE HCL 5 MG TABLET (FOR DETOX USE ONLY) PO ONE (06:00)
== END 2017-03-19 09:08 | disposition left against medical advice (07) | DRG 770 ==
LOC: YASAS 12:11 → Y6N 14:16
PROVIDERS: ADMIT Internal Medicine; ATTEND Internal Medicine
PROC: HZ2ZZZZ Detoxification Services for Substance Abuse Treatment (ICD-10-PCS; principal; 2017-03-19)
DX: F11.23 Opioid dependence with withdrawal (principal); F12.20 Cannabis dependence, uncomplicated; F17.210 Nicotine dependence, cigarettes, uncomplicated; F19.24 Other psychoactive substance dependence with psychoactive substance-induced mood disorder; F32.9 Major depressive disorder, single episode, unspecified; G47.00 Insomnia, unspecified; K02.9 Dental caries, unspecified
CPT/HCPCS: 36415; 80053; 81003; 85027; 86593; 93005; 93010

== ENCOUNTER 2020-09-08 11:35 | Inpatient (IN) | payer OTHER ==
[2020-09-08 12:19] VITALS: BMI 25.7
[2020-09-08] MEDS ORDERED: MAGNESIUM CITRATE 300 ML BOTTLE PO PRN (12:41)
[2020-09-08] MEDS ORDERED: MAG HYDROX/AL HYDROX/SIMETH 30 ML UNIT-DOSE CUP PO PRN (12:41)
[2020-09-08] MEDS ORDERED: methaDONE HCL 10 MG TABLET (FOR DETOX USE ONLY) PO ONE (12:41)
[2020-09-08] MEDS ORDERED: METHOCARBAMOL 500 MG TABLET PO PRN (12:41)
[2020-09-08] MEDS ORDERED: MENTHOL/PHENOL 1 EACH UD MM PRN (12:41)
[2020-09-08] MEDS ORDERED: cloNIDine HCL 0.1 MG TABLET PO PRN (12:41)
[2020-09-08] MEDS ORDERED: IBUPROFEN 400 MG TABLET (FP) PO PRN (12:41)
[2020-09-08] MEDS ORDERED: NICOTINE POLACRILEX 2 MG GUM BUC PRN (12:41)
[2020-09-08] MEDS ORDERED: MAGNESIUM HYDROX 2400MG/30ML ORAL SUSPENSION 30 ML CUP PO PRN (12:41)
[2020-09-08] MEDS ORDERED: BISMUTH SUBSALICYLATE 262 MG/15 ML BTL PO PRN (12:41)
[2020-09-08] MEDS ORDERED: ACETAMINOPHEN 325 MG TABLET (FP) PO PRN ×2 (12:41)
[2020-09-08] MEDS ORDERED: ONDANSETRON *ODT* 4 MG TABLET SL PRN (13:05)
[2020-09-08] MEDS: hydrOXYzine PAMOATE 25 MG CAPSULE (FP) PO SCH ×3 (13:47→22:56)
[2020-09-08] MEDS: NICOTINE 7 MG/24 HOURS TOPICAL PATCH TD SCH (13:47)
[2020-09-08 16:19] LABS: HEMOGLOBIN 13.4 GM/dL (11.7-16.9); MCH 29.6 pg (25.7-33.7); MCHC 34.3 g/dl (32.0-35.9); MEAN CELL VOLUME 86.4 fl (80-96); MEAN PLT VOLUME 8.3 fl (7.5-11.1); PLATELET COUNT 335 K/MM3 (134-434); RBC 4.51 M/mm3 (4.00-5.60); RDW 13.6 % (11.9-15.9); WHITE BLOOD COUNT 7.8 K/mm3 (4.0-10.0)
[2020-09-08 16:26] LABS: BLOOD UREA NITROGEN 25.4 mg/dL (7-18)
[2020-09-08 16:27] LABS: ALBUMIN 4.4 g/dl (3.4-5.0); CALCIUM 9.5 mg/dL (8.5-10.1)
[2020-09-08 16:30] LABS: CREATININE 1.5 mg/dL (0.55-1.3)
[2020-09-08 16:31] LABS: TOT PROT 8.3 g/dl (6.4-8.2)
[2020-09-08 16:42] LABS: BILIRUBIN,TOTAL 1.3 mg/dL (0.2-1)
[2020-09-08] MEDS: MELATONIN 5 MG TABLETS PO SCH (22:56)
[2020-09-08] MEDS: THIAMINE HCL 100 MG TABLET (FP) PO SCH (22:57)
[2020-09-09] MEDS: hydrOXYzine PAMOATE 25 MG CAPSULE (FP) PO SCH ×5 (06:22→22:45)
[2020-09-09] MEDS ORDERED: methaDONE HCL 10 MG TABLET (FOR DETOX USE ONLY) ONE (09:04)
[2020-09-09] MEDS: PRENATAL VITAMINS W/ FOLIC ACID TABLET (FP) PO SCH (09:15)
[2020-09-09] MEDS: NICOTINE 7 MG/24 HOURS TOPICAL PATCH TD SCH (09:15)
[2020-09-09] MEDS: POTASSIUM CHLORIDE ORAL LIQUID 20 MEQ/15 ML PO SCH ×2 (11:20→22:46)
[2020-09-09] MEDS: THIAMINE HCL 100 MG TABLET (FP) PO SCH (22:45)
[2020-09-09] MEDS: MELATONIN 5 MG TABLETS PO SCH (22:46)
[2020-09-10] MEDS: hydrOXYzine PAMOATE 25 MG CAPSULE (FP) PO SCH ×2 (07:16→09:35)
[2020-09-10] MEDS: PRENATAL VITAMINS W/ FOLIC ACID TABLET (FP) PO SCH (09:35)
[2020-09-10] MEDS: POTASSIUM CHLORIDE ORAL LIQUID 20 MEQ/15 ML PO SCH (09:36)
[2020-09-10] MEDS: NICOTINE 7 MG/24 HOURS TOPICAL PATCH TD SCH (09:36)
[2020-09-10] MEDS ORDERED: methaDONE HCL 10 MG TABLET (FOR DETOX USE ONLY) PO ONE (10:00)
[2020-09-10 10:37] VITALS: BP 140/92; PULSE 85; TEMP 96.8
[2020-09-10 11:35] LABS: ALBUMIN 4.2 g/dl (3.4-5.0); BLOOD UREA NITROGEN 14.7 mg/dL (7-18); CALCIUM 10.1 mg/dL (8.5-10.1)
[2020-09-10 11:39] LABS: BILIRUBIN,TOTAL 0.7 mg/dL (0.2-1)
[2020-09-10 11:40] LABS: TOT PROT 7.9 g/dl (6.4-8.2)
[2020-09-12] MEDS ORDERED: methaDONE HCL 10 MG TABLET (FOR DETOX USE ONLY) PO ONE (10:00)
== END 2020-09-10 10:54 | disposition left against medical advice (07) | DRG 770 ==
LOC: YASAS 11:35 → Y3N 13:00
PROVIDERS: ADMIT Allergy & Immunology; ATTEND Allergy & Immunology
PROC: HZ2ZZZZ Detoxification Services for Substance Abuse Treatment (ICD-10-PCS; principal; 2020-09-08)
DX: F11.23 Opioid dependence with withdrawal (principal); F14.20 Cocaine dependence, uncomplicated; F12.20 Cannabis dependence, uncomplicated; F17.210 Nicotine dependence, cigarettes, uncomplicated; R63.4 Abnormal weight loss; Z68.25 Body mass index [BMI] 25.0-25.9, adult; Z90.49 Acquired absence of other specified parts of digestive tract
CPT/HCPCS: 36415; 80053; 85027; 86780; 93005; 93010; C9803; J0735; U0003

== ENCOUNTER 2020-10-26 11:10 | Inpatient (IN) | payer OTHER ==
[2020-10-26 11:40] VITALS: BMI 26.3
[2020-10-26] MEDS ORDERED: MAG HYDROX/AL HYDROX/SIMETH 30 ML UNIT-DOSE CUP PO PRN (12:33)
[2020-10-26] MEDS ORDERED: METHOCARBAMOL 500 MG TABLET PO PRN (12:33)
[2020-10-26] MEDS ORDERED: ACETAMINOPHEN 325 MG TABLET (FP) PO PRN ×2 (12:33)
[2020-10-26] MEDS ORDERED: NICOTINE POLACRILEX 2 MG GUM BUC PRN (12:33)
[2020-10-26] MEDS ORDERED: cloNIDine HCL 0.1 MG TABLET PO PRN (12:33)
[2020-10-26] MEDS ORDERED: MENTHOL/PHENOL 1 EACH UD MM PRN (12:33)
[2020-10-26] MEDS ORDERED: ONDANSETRON *ODT* 4 MG TABLET SL PRN (12:33)
[2020-10-26] MEDS ORDERED: METHADONE HCL 10 MG TABLET (FOR DETOX USE ONLY) PO ONE (12:33)
[2020-10-26] MEDS ORDERED: MAGNESIUM CITRATE 300 ML BOTTLE PO PRN (12:33)
[2020-10-26] MEDS ORDERED: IBUPROFEN 400 MG TABLET (FP) PO PRN (12:33)
[2020-10-26] MEDS ORDERED: BISMUTH SUBSALICYLATE 262 MG/15 ML BTL PO PRN (12:33)
[2020-10-26] MEDS ORDERED: MAGNESIUM HYDROX 2400MG/30ML ORAL SUSPENSION 30 ML CUP PO PRN (12:33)
[2020-10-26] MEDS: hydrOXYzine PAMOATE 25 MG CAPSULE (FP) PO SCH ×3 (13:25→22:05)
[2020-10-26 17:26] LABS: HEMOGLOBIN 12.4 GM/dL (11.7-16.9); MCH 29.7 pg (25.7-33.7); MCHC 34.4 g/dl (32.0-35.9); MEAN CELL VOLUME 86.2 fl (80-96); PLATELET COUNT 315 K/MM3 (134-434); RBC 4.18 M/mm3 (4.00-5.60); WHITE BLOOD COUNT 6.8 K/mm3 (4.0-10.0)
[2020-10-26 17:30] LABS: CALCIUM 9.8 mg/dL (8.5-10.1)
[2020-10-26 17:31] LABS: BLOOD UREA NITROGEN 12.8 mg/dL (7-18)
[2020-10-26 17:34] LABS: CREATININE 1.1 mg/dL (0.55-1.3)
[2020-10-26 17:35] LABS: BILIRUBIN,TOTAL 0.2 mg/dL (0.2-1); TOT PROT 7.7 g/dl (6.4-8.2)
[2020-10-26 19:36] LABS: HIV INTERPRETATION NEGATIVE (NEGATIVE)
[2020-10-26] MEDS: THIAMINE HCL 100 MG TABLET (FP) PO SCH (22:05)
[2020-10-26] MEDS: MELATONIN 5 MG TABLETS PO SCH (22:05)
[2020-10-27] MEDS: hydrOXYzine PAMOATE 25 MG CAPSULE (FP) PO SCH ×5 (07:08→22:15)
[2020-10-27] MEDS ORDERED: METHADONE HCL 5 MG TABLET (FOR DETOX USE ONLY) ONE (08:29)
[2020-10-27] MEDS ORDERED: METHADONE HCL 10 MG TABLET (FOR DETOX USE ONLY) ONE (08:29)
[2020-10-27] MEDS ORDERED: METHADONE (DETOX) 20 MG, METHADONE (DETOX) 5 MG PO ONE (10:00)
[2020-10-27] MEDS: PRENATAL VITAMINS W/ FOLIC ACID TABLET (FP) PO SCH (10:07)
[2020-10-27] MEDS: THIAMINE HCL 100 MG TABLET (FP) PO SCH (22:15)
[2020-10-27] MEDS: MELATONIN 5 MG TABLETS PO SCH (22:18)
[2020-10-28] MEDS: hydrOXYzine PAMOATE 25 MG CAPSULE (FP) PO SCH ×5 (05:54→22:21)
[2020-10-28] MEDS ORDERED: METHADONE HCL 10 MG TABLET (FOR DETOX USE ONLY) PO ONE (10:00)
[2020-10-28] MEDS: PRENATAL VITAMINS W/ FOLIC ACID TABLET (FP) PO SCH (10:23)
[2020-10-28 21:46] VITALS: TEMP 97.1
[2020-10-28] MEDS: THIAMINE HCL 100 MG TABLET (FP) PO SCH (22:21)
[2020-10-28] MEDS: MELATONIN 5 MG TABLETS PO SCH (22:22)
[2020-10-29] MEDS: hydrOXYzine PAMOATE 25 MG CAPSULE (FP) PO SCH (06:00)
[2020-10-29 07:46] VITALS: BP 142/92; PULSE 68
[2020-10-29] MEDS ORDERED: METHADONE (DETOX) 10 MG, METHADONE (DETOX) 5 MG PO ONE (10:00)
[2020-10-30] MEDS ORDERED: METHADONE HCL 10 MG TABLET (FOR DETOX USE ONLY) PO ONE (10:00)
[2020-10-31] MEDS ORDERED: METHADONE HCL 5 MG TABLET (FOR DETOX USE ONLY) PO ONE (06:00)
== END 2020-10-29 09:22 | disposition home or self-care (01) | DRG 773 ==
LOC: YASAS 11:10 → Y6N 12:00
PROVIDERS: ADMIT Allergy & Immunology; ATTEND Allergy & Immunology
PROC: HZ2ZZZZ Detoxification Services for Substance Abuse Treatment (ICD-10-PCS; principal; 2020-10-26)
DX: F11.23 Opioid dependence with withdrawal (principal); F12.20 Cannabis dependence, uncomplicated; F17.210 Nicotine dependence, cigarettes, uncomplicated
CPT/HCPCS: 36415; 80053; 85027; 86780; 87389; C9803; J0735; U0003

== ENCOUNTER 2021-01-26 12:44 | Inpatient (IN) | payer OTHER ==
[2021-01-26 13:15] VITALS: BMI 25.5
[2021-01-26] MEDS ORDERED: MENTHOL/PHENOL 1 EACH UD MM PRN (13:52)
[2021-01-26] MEDS ORDERED: MAG HYDROX/AL HYDROX/SIMETH 30 ML UNIT-DOSE CUP PO PRN (13:52)
[2021-01-26] MEDS ORDERED: ACETAMINOPHEN 325 MG TABLET (FP) PO PRN ×2 (13:52)
[2021-01-26] MEDS ORDERED: METHADONE HCL 10 MG TABLET (FOR DETOX USE ONLY) PO ONE (13:52)
[2021-01-26] MEDS ORDERED: BISMUTH SUBSALICYLATE 262 MG/15 ML BTL PO PRN (13:52)
[2021-01-26] MEDS ORDERED: IBUPROFEN 400 MG TABLET (FP) PO PRN (13:52)
[2021-01-26] MEDS ORDERED: MAGNESIUM CITRATE 300 ML BOTTLE PO PRN (13:52)
[2021-01-26] MEDS ORDERED: cloNIDine HCL 0.1 MG TABLET PO PRN (13:52)
[2021-01-26] MEDS ORDERED: MAGNESIUM HYDROX 2400MG/30ML ORAL SUSPENSION 30 ML CUP PO PRN (13:52)
[2021-01-26] MEDS ORDERED: ONDANSETRON *ODT* 4 MG TABLET SL PRN (13:52)
[2021-01-26] MEDS ORDERED: METHOCARBAMOL 500 MG TABLET PO PRN (13:52)
[2021-01-26] MEDS ORDERED: NICOTINE POLACRILEX 2 MG GUM BUC PRN (13:52)
[2021-01-26] MEDS: hydrOXYzine PAMOATE 25 MG CAPSULE (FP) PO SCH ×3 (14:33→22:28)
[2021-01-26] MEDS: NICOTINE 7 MG/24 HOURS TOPICAL PATCH TD SCH (14:34)
[2021-01-26] MEDS: PRENATAL VITAMINS W/ FOLIC ACID TABLET (FP) PO SCH (14:35)
[2021-01-26] MEDS: MELATONIN 5 MG TABLETS PO SCH (22:28)
[2021-01-26] MEDS: THIAMINE HCL 100 MG TABLET (FP) PO SCH (22:29)
[2021-01-27] MEDS: hydrOXYzine PAMOATE 25 MG CAPSULE (FP) PO SCH ×5 (05:58→22:22)
[2021-01-27] MEDS ORDERED: MASKS NR ONE (09:02)
[2021-01-27] MEDS ORDERED: METHADONE HCL 5 MG TABLET (FOR DETOX USE ONLY) ONE (09:07)
[2021-01-27] MEDS ORDERED: METHADONE HCL 10 MG TABLET (FOR DETOX USE ONLY) ONE (09:08)
[2021-01-27] MEDS ORDERED: METHADONE (DETOX) 20 MG, METHADONE (DETOX) 5 MG PO ONE (10:00)
[2021-01-27] MEDS: PRENATAL VITAMINS W/ FOLIC ACID TABLET (FP) PO SCH (10:00)
[2021-01-27] MEDS: NICOTINE 7 MG/24 HOURS TOPICAL PATCH TD SCH (10:02)
[2021-01-27 12:13] LABS: ALBUMIN 4.2 g/dl (3.4-5.0); CALCIUM 9.2 mg/dL (8.5-10.1)
[2021-01-27 12:14] LABS: BLOOD UREA NITROGEN 13.8 mg/dL (7-18)
[2021-01-27 12:16] LABS: HEMATOCRIT 34.7 % (35.4-49); MCH 29.5 pg (25.7-33.7); MCHC 34.5 g/dl (32.0-35.9); MEAN CELL VOLUME 85.5 fl (80-96); MEAN PLT VOLUME 7.9 fl (7.5-11.1); PLATELET COUNT 272 K/MM3 (134-434); RBC 4.06 M/mm3 (4.00-5.60); RDW 13.3 % (11.9-15.9); WHITE BLOOD COUNT 2.9 K/mm3 (4.0-10.0)
[2021-01-27 12:17] LABS: CREATININE 1.1 mg/dL (0.55-1.3)
[2021-01-27 12:18] LABS: BILIRUBIN,TOTAL 0.4 mg/dL (0.2-1); TOT PROT 7.7 g/dl (6.4-8.2)
[2021-01-27] MEDS: MELATONIN 5 MG TABLETS PO SCH (22:22)
[2021-01-27] MEDS: THIAMINE HCL 100 MG TABLET (FP) PO SCH (22:22)
[2021-01-28] MEDS: hydrOXYzine PAMOATE 25 MG CAPSULE (FP) PO SCH ×2 (06:51→10:22)
[2021-01-28] MEDS ORDERED: METHADONE HCL 10 MG TABLET (FOR DETOX USE ONLY) PO ONE (10:00)
[2021-01-28] MEDS: NICOTINE 7 MG/24 HOURS TOPICAL PATCH TD SCH (10:23)
[2021-01-28] MEDS: PRENATAL VITAMINS W/ FOLIC ACID TABLET (FP) PO SCH (10:23)
[2021-01-28 11:05] VITALS: BP 148/89; PULSE 105; TEMP 98
[2021-01-29] MEDS ORDERED: METHADONE (DETOX) 10 MG, METHADONE (DETOX) 5 MG PO ONE (10:00)
[2021-01-30] MEDS ORDERED: METHADONE HCL 10 MG TABLET (FOR DETOX USE ONLY) PO ONE (10:00)
[2021-01-31] MEDS ORDERED: METHADONE HCL 5 MG TABLET (FOR DETOX USE ONLY) PO ONE (06:00)
== END 2021-01-28 12:00 | disposition left against medical advice (07) | DRG 770 ==
LOC: YASAS 12:44 → Y6N 14:02
PROVIDERS: ADMIT Allergy & Immunology; ATTEND Allergy & Immunology
PROC: HZ2ZZZZ Detoxification Services for Substance Abuse Treatment (ICD-10-PCS; principal; 2021-01-26)
DX: F11.23 Opioid dependence with withdrawal (principal); F12.20 Cannabis dependence, uncomplicated; F17.210 Nicotine dependence, cigarettes, uncomplicated; F19.24 Other psychoactive substance dependence with psychoactive substance-induced mood disorder; G47.00 Insomnia, unspecified; R63.4 Abnormal weight loss; Z68.25 Body mass index [BMI] 25.0-25.9, adult; Z90.49 Acquired absence of other specified parts of digestive tract
CPT/HCPCS: 36415; 80053; 85027; 86780; C9803; U0003; U0005